=== PATIENT | male | born 1970 | race Caucasian/White ===

== ENCOUNTER 2018-03-04 22:42 | Emergency (ER) | payer MEDICAID, SELFPAY ==
[2018-03-04 22:42] VITALS: BP 144/104; PULSE 87; RESP 18; TEMP 37.1; O2SAT 94; BMI 30.2
--- NOTE | 2018-03-04 23:20 | ED.DCSUM_ITS ---
- ER Visit Summary Date of Service: 03/04/18 Chief Complaint: Left thumb pain History of Present Illness: The patient is a 47 M presenting with left thumb pain. Patient states it started 2 days ago. He has pain and swelling to the distal thumb. He denies any injury. He states he tried to take a knife blade to it yesterday but was unable to get any drainage. Denies fever or other complaints. Physical Examination: Vitals are stable. Patient is afebrile. Alert no acute distress. HEENT exam is unremarkable. Neck is supple. Lungs are clear and equal bilaterally. Heart is regular rate and rhythm. Extremities left thumb paronychia. No evidence of felon. Skin is warm and dry. No focal neurologic deficit. Remainder of exam is unremarkable. Emergency Department Course and Treatment: Due to the use of a knife blade yesterday, Adacel IM was given. Digital block of left thumb was performed. I&D was performed. Incised with 11 blade. Pus was drained. Irrigated. Patient is given clindamycin and short course of [place]. He is advised to follow-up with his primary care physician. Advised return to ED if worsening complaints. Disposition: Discharge home Impression: Left thumb paronychia, I&D This note was generated with [employer] dictation software. It may contain incorrect words, spelling, and punctuation that were not noted in review of the chart prior to signing ED Disposition - Plan for ED Patient: Disposition: Home or Assisted Living Chief Complaint: Upper Extremity Injury Instructions: ED Fingernail Infec Prescriptions: Hydrocodone Bitart/Apap 5-325 [[place] 5MG-325MG] 1 tablet PO Q6H PRN PRN 3 Days #10 tablet PRN Reason: Pain RX: Clindamycin [Cleocin] 300 mg PO 4X/DAY #80 capsule Referrals: [facility] Doctor,Out of [Primary Care Provider] -
--- NOTE | 2018-03-04 23:36 | ED.DEP ---
ED Disposition - Plan for ED Patient: Chief Complaint: Upper Extremity Injury Instructions: ED Fingernail Infec Prescriptions: Hydrocodone Bitart/Apap 5-325 [[place] 5MG-325MG] 1 tablet PO Q6H PRN PRN 3 Days #10 tablet PRN Reason: Pain Clindamycin [Cleocin] 300 mg PO 4X/DAY #80 capsule Referrals: [facility] Doctor,Out of [Primary Care Provider] -
[2018-03-04] MEDS: Diphth,Pertuss(Acell),Tet Vac 0.5 ML Vial IM (23:47)
[2018-03-04] MEDS: Clindamycin HCl 150 MG Capsule 450 MG PO (23:48)
[2018-03-05 00:02] VITALS: BP 145/101; PULSE 82; RESP 16; O2SAT 97
== END 2018-03-05 00:05 | disposition home or self-care (01) ==
PROVIDERS: Emergency Provider Emergency Medicine
DX: L03.012 Cellulitis of left finger (principal); Z23 Encounter for immunization; Z72.0 Tobacco use
CPT/HCPCS: 10060; 90471; 90715; 99283

== ENCOUNTER 2018-05-04 19:01 | Emergency (ER) | payer MEDICAID, SELFPAY ==
[2018-05-04 19:02] VITALS: BP 157/84; TEMP 36.1; O2SAT 100; BMI 30.9
[2018-05-04 19:17] VITALS: O2SAT 100
[2018-05-04 19:20] VITALS: PULSE 67; RESP 18
[2018-05-04] MEDS: Ipratropium/Albuterol Sulfate 3 ML AMPUL.NEB INHALATION (19:20)
--- NOTE | 2018-05-04 19:30 | RAD_ITS ---
STUDY: X-RAY CHEST REASON FOR EXAM: Male, 47 years old. Cough. TECHNIQUE: Frontal and lateral views of the chest. COMPARISON: None. FINDINGS: The lungs are hyperexpanded. There are granulomatous calcifications. There is no demonstrated pleural abnormality. Normal size heart. Normal mediastinum and hector. Normal visualized pulmonary arteries. Normal visualized aortic arch and descending thoracic aorta. Normal visualized thoracic spine. Normal visualized ribs, clavicles, and shoulders. There is no demonstrated abnormality of the visualized soft tissue structures of the upper abdomen. RAD/Chest PA and Lateral IMPRESSION: Hyperexpansion with no acute pathology. Electronically Signed: Krish Dasilva MD at 20:14 EST , Service support ,
--- NOTE | 2018-05-04 20:35 | ED.VISSUMM ---
- ER Visit Summary Date of Service: 05/04/18 Chief Complaint: Chest cold and cough History of Present Illness: The patient is a 47 M with a 2-1/2-week history of upper respiratory symptoms. Patient initially had head congestion that led to sore throat and then chest congestion. He has had cough with white to yellow colored sputum production. Significant other does report an episode of cough syncope. He does feel like he is wheezing. He denies fever or chills. Patient is a long-term smoker. He has never been diagnosed with COPD. He states he uses inhalers as needed, but does not use them in the last couple months. Physical Examination: Blood pressure is 156/84, other vitals normal. Pulse ox is 100%. Patient is sitting upright in bed. He speaks with an intermittently hoarse voice. Head and neck examination reveals TMs to be clear bilaterally. Posterior pharynx is normal. Heart is regular rate and rhythm. Lungs sounds are diminished throughout, but no wheezes or rhonchi are noted. Abdomen is soft nontender. Test Results: Two-view chest x-ray shows hyperexpansion but no acute pathology. Emergency Department Course and Treatment: Patient is given a DuoNeb treatment here. On repeat evaluation he does have improved air movement throughout. My suspicion is the patient has underlying COPD and will be treated as a COPD exacerbation. He will be given prednisone, doxycycline, and albuterol. Treatment Plan: [] Disposition: Discharge Impression: Bronchitis This note was generated with [employer] dictation software. It may contain incorrect words, spelling, and punctuation that were not noted in review of the chart prior to signing ED Disposition - Plan for ED Patient: Disposition: Home or Assisted Living Chief Complaint: Cold Sx Instructions: ED Upper Resp Infec Abx Tx Prescriptions: Albuterol Inhaler [Ventolin Hfa] 1 - 2 puff INHALATION Q4H PRN PRN #1 inhaler PRN Reason: Wheezing predniSONE tablet 60 mg PO DAILY #15 tablet Doxycycline 100 mg PO BID #20 capsule Referrals: [facility] Doctor,Out of [Primary Care Provider] -
[2018-05-04] MEDS: predniSONE 20 MG Tablet 60 MG PO (20:41)
[2018-05-04] MEDS: Doxycycline 100 MG CAPSULE PO (20:41)
[2018-05-04 20:43] VITALS: BP 142/60; PULSE 96; RESP 20; O2SAT 97
== END 2018-05-04 20:43 | disposition home or self-care (01) ==
PROVIDERS: Emergency Provider Emergency Medicine
DX: J40 Bronchitis, not specified as acute or chronic (principal); F17.200 Nicotine dependence, unspecified, uncomplicated
CPT/HCPCS: 71046; 94640; 99283

== ENCOUNTER 2019-02-22 12:09 | Emergency (ER) | payer MEDICAID, SELFPAY ==
[2019-02-22 12:09] VITALS: BP 158/81; PULSE 85; RESP 18; TEMP 36.2; O2SAT 98; BMI 28.8
--- NOTE | 2019-02-22 12:30 | ED.VIS.GEN ---
History of Present Illness Chief Complaint: Upper Extremity Injury Informant: Patient Onset: Today Current Severity: Moderate Maximum Severity: Moderate Narrative: Patient presents with right arm injury. He was lifting a countertop that he states was too heavy for him. He carried it and on and and when laying it down put all the weight from the countertop onto his right arm. He states he felt a pop near his elbow and has had pain since that time. He has decreased range of motion secondary to pain. He tried ibuprofen and icy hot without improvement. He is right-hand dominant. He initially had some paresthesias that have since resolved. Past Medical History - Allergies and Home Meds Allergies/Adverse Reactions: Allergies Penicillins [PCN] Allergy (Verified 02/22/19 12:12) Unknown Primary Care Physician: Suzanne Espana,Out of [NON-STAFF] - Prior records reviewed: Yes Past Medical History: - Lives: Spouse/ Significant Other Smoking Status: Current every day smoker Review of Systems General: Denies: Chills, Fever Eyes: Denies: Visual changes - bilaterally ENT: Denies: Bilateral ear pain Cardiovascular: Denies: Chest pain Respiratory: Denies: Dyspnea, Cough Gastrointestinal: Denies: Abdominal pain, Nausea, Vomiting, Diarrhea Musculoskeletal: Reports: Extremity Pain. Denies: Neck pain, Back pain Neurological: Reports: Parasthesia. Denies: Headache Hematologic: Denies: Easy bruising Allergy: Denies: Uticaria Physical Exam Vital Signs/Narrative: Vital Signs Temp Pulse Resp BP Pulse Ox 02/22/19 12:09 97.1 F L 85 18 158/81 H 98 Inital Vital Signs reviewed: Yes General: Well nourished, Well developed Head: Normocephalic ENT: Moist mucous membranes Neck: Supple Cardiovascular: Regular rate, Regular rhythm Respiratory: No distress, CTA bilaterally Abdomen: Soft, Nontender Back: Nontender Extremities: - - Tenderness palpation throughout the right arm, worse at the right elbow. No edema noted and no sign of compartment syndrome. Strong distal pulses and strong hand grasp. Neurological: Alert, Oriented x3 Psychological: Normal affect Diagnostic/Tx/Re-eval Impressions Forearm X-Ray 02/22/19 12:45 IMPRESSION: No fracture or malalignment. Electronically Signed: Rocky Fowler MD ([place]) at 13:00 EDT , Service support , Humerus X-Ray 02/22/19 12:45 IMPRESSION: No fracture or malalignment. Electronically Signed: Rocky Fowler MD ([place]) at 12:59 EDT , Service support , 02/22/19 12:45 Forearm 2 Views [RAD] Stat Humerus min 2 Views [RAD] Stat - Medical Decision Making Patient had taken ibuprofen prior to arrival. He was given [place] and Flexeril here to help control pain and spasm. X-rays revealed no evidence of pull off fracture. On repeat evaluation he is resting more comfortably. He will be given a sling and was ejected to come out of this a couple times a day to keep range of motion active. He will be referred to orthopedics for follow-up. ED Disposition - Plan for ED Patient: Disposition: Home or Assisted Living Diagnosis: Traumatic partial tear of right biceps tendon Instructions: MUSCLE STRAIN, Extremity Prescriptions: Hydrocodone Bitart/Apap 5-325 [[place] 5MG-325MG] 1 tablet PO Q6H PRN PRN 3 Days #10 tablet PRN Reason: Pain Referrals: Jesse Adorno MD [STAFF PHYSICIAN] - 1 Week if not improving
[2019-02-22] MEDS: cycloBENZAPRine HCl 10 MG Tablet PO (12:36)
[2019-02-22] MEDS: HYDROcodone Bitartrate/Apap 5/325 Tablet PO (12:36)
--- NOTE | 2019-02-22 12:45 | RAD_ITS ---
STUDY: X-RAY - RIGHT HUMERUS REASON FOR EXAM: Male, 48 years old. Lifting injury, pain of the right upper arm TECHNIQUE: 2 view(s) of the humerus. COMPARISON: None. FINDINGS: Normal visualized humerus. There is no demonstrated fracture or osseous destructive process. There is no demonstrated soft tissue abnormality. RAD/Humerus min 2 Views IMPRESSION: No fracture or malalignment. Electronically Signed: Rocky Fowler MD ([place]) at 12:59 EDT , Service support ,
--- NOTE | 2019-02-22 12:45 | RAD_ITS ---
STUDY: X-RAY - RIGHT RADIUS AND ULNA REASON FOR EXAM: Male, 48 years old. Lifting injury, right arm pain TECHNIQUE: 2 view(s) of the forearm. COMPARISON: None. FINDINGS: There is no demonstrated soft tissue swelling. Normal visualized radius. Normal visualized ulna. There is arthrosis of the visualized elbow articulations. RAD/Forearm 2 Views IMPRESSION: No fracture or malalignment. Electronically Signed: Rocky Fowler MD ([place]) at 13:00 EDT , Service support ,
[2019-02-22 14:06] VITALS: RESP 16
--- NOTE | 2019-02-22 14:06 | ED.RN ---
REVIEWED D/C INSTRUCTIONS, FOLLOW UP CARE, PRESCRIPTION, AND S/S THAT WOULD WARRANT A RETURN TO THE ED WITH PT. PT VERBALIZED AN UNDERSTANDING AND DENIES FURTHER QUESTIONS FOR THIS RN. PT SKIN P/W/D, RESP EVEN AND UNLABORED, PT A&O X 3, NO DISTRESS NOTED. PT AMBULATED OUT OF ED, GAIT STEADY.
== END 2019-02-22 14:08 | disposition home or self-care (01) ==
PROVIDERS: Emergency Provider Emergency Medicine
DX: S46.211A Strain of muscle, fascia and tendon of other parts of biceps, right arm, initial encounter (principal); F17.200 Nicotine dependence, unspecified, uncomplicated; X50.0XXA Overexertion from strenuous movement or load, initial encounter; Y93.89 Activity, other specified; Y92.89 Other specified places as the place of occurrence of the external cause; Y99.8 Other external cause status
CPT/HCPCS: 73060; 73090; 99284